=== PATIENT | male | born 1955 | race Caucasian/White ===

== ENCOUNTER 2018-01-13 07:55 | Day surgery (SDC) | payer OTHER ==
[~2018-01-13] VITALS: Ht 182.9 cm; Wt 115.7 kg
[~2018-01-13 07:55] MED LIST: FLOMAX0.4 MG PO; FLONASE2 SPRAY NS; LISINOPRIL10 MG PO; TYLENOL PM EX-1 EACH PO
--- NOTE | 2018-01-13 09:35 | NUR ---
01/13/18 0935 Kemi Hawk 0974-PATIENT ARRIVED TO PACU ON 2L NC O2 SAT 96% PATIENT REACTIVE TO VOICE DROWSY. RR EVEN. ABDOMEN ROUND AND SOFT. LAYING LEFT LATERAL. 0934-PATIENT WEANED TO RA O2 SAT 96% SB SCORE OF 4 WILL SEND SLEEP APNEA FORM.
--- NOTE | 2018-01-14 09:05 | OR ---
[facility] [address], [place] [address] Signed DATE OF OPERATION: 01/13/2018 SURGEON: Ursula Plaza MD COLONOSCOPY REPORT PREOPERATIVE DIAGNOSES: 1. Father with a history of colon cancer in his 70s. 2. Diverticulosis. 3. Hyperplastic rectal polyp. POSTOPERATIVE DIAGNOSIS: Moderate sigmoid diverticulosis. PROCEDURE PERFORMED: Colonoscopy without biopsy. ESTIMATED BLOOD LOSS: None. INDICATIONS: Aruna is a 62-year-old gentleman, who is here for followup colonoscopy. His father had colon cancer in his mid 70s. Aruna had a hyperplastic polyp taken out of the rectum back in 2012. He also has diverticulosis. In the meantime, he said he is doing great and he was able to retire early. He said it has been wonderful. He said he has no lower GI complaints. In the office, I gave Tabitha pamphlet on colonoscopy, we looked at that together along with the risks and benefits. He understands there is risk including, but not limited to gas bloating, crampy abdominal pain, bleeding, perforation, requiring surgery, and missed diagnosis. He also understands the need for IV conscious sedation. He had expressed understanding and wished to proceed. PROCEDURE NOTE: Aruna was taken into our endoscopy suite and placed in the left lateral decubitus position. He was given divided doses of 10 mg of Versed and 175 mcg of fentanyl to cover the case. A thorough rectal exam was performed and his prostate is moderately indurated and enlarged. The right is a little more prominent than the left, but note no dominant nodules. After this, the adult colonoscope was introduced and advanced all around into the cecum under direct visualization of camera. He took some extra prep and some abdominal compression in order to advance the scope. His prep was good. The scope was then slowly withdrawn. He does have a moderate sigmoid diverticulosis. The rectum Electronically Signed By: URSULA PLAZA MD 01/14/18 0905 PATIENT NAME: ARUNA KNOX OPERATIVE REPORT DATE OF : 57 REPORT #: [id number] PHYSICIAN: URSULA PLAZA MD PCP: ANY ENGEL MD REPORT IS CONFIDENTIAL AND NOT TO BE RELEASED WITHOUT AUTHORIZATION [facility] [address], [place] [address] Signed itself was unremarkable. Upon retroflexion of the scope, there was no additional pathology noted above the anal canal. After this, the gas was suctioned out. The colonoscope was removed. Aruna tolerated the procedure quite well. RECOMMENDATIONS: Aruna can follow up in 5 years for repeat colonoscopy. He will follow along with his primary care provider with respect to his prostate and his father's history of prostate cancer. Ursula Plaza MD ALB/MODL /[id number] cc: MD Ursula Campos MD Copies: ANY ENGEL MD, ANDREW L MD ~ Electronically Signed By: URSULA PLAZA MD 01/14/18 0905 PATIENT NAME: ARUNA KNOX OPERATIVE REPORT DATE OF : 57 REPORT #: [id number] PHYSICIAN: URSULA PLAZA MD PCP: ANY ENGEL MD REPORT IS CONFIDENTIAL AND NOT TO BE RELEASED WITHOUT AUTHORIZATION
== END 2018-01-13 10:25 | disposition home or self-care (01) ==
LOC: OPS 07:55 → DS 07:55 → OPS 09:00 → DS 09:00 → OPS 10:25
PROVIDERS: Colon & Rectal Surgery
PROC: 0DJD8ZZ Inspection of Lower Intestinal Tract, Via Natural or Artificial Opening Endoscopic (ICD-10-PCS; principal; 2018-01-13 09:00)
DX: Z12.11 Encounter for screening for malignant neoplasm of colon (principal); K57.30 Diverticulosis of large intestine without perforation or abscess without bleeding; I10 Essential (primary) hypertension; E66.9 Obesity, unspecified; N40.0 Benign prostatic hyperplasia without lower urinary tract symptoms; Z80.0 Family history of malignant neoplasm of digestive organs; Z86.018 Personal history of other benign neoplasm; Z68.34 Body mass index [BMI] 34.0-34.9, adult; Z79.51 Long term (current) use of inhaled steroids; Z79.899 Other long term (current) drug therapy
CPT/HCPCS: 99153; G0500; J2250; J3010; J7120

== ENCOUNTER 2024-03-26 18:32 | Emergency (ER) | payer MEDICARE ==
[~2024-03-26] VITALS: Ht 182.9 cm; Wt 110.4 kg
[2024-03-26] MEDS ORDERED: TADALAFIL5 M1 PO (18:59)
[2024-03-26] MEDS ORDERED: DIPHTH,PERTUSS(ACELL),TET VAC 0.5 ML SYRINGE IM ONE (19:45)
[2024-03-26 20:00] VITALS: BP 135/78
== END 2024-03-26 20:15 | disposition home or self-care (01) ==
LOC: ED 18:32
DX: S61.411A Laceration without foreign body of right hand, initial encounter (principal); W26.0XXA Contact with knife, initial encounter; I10 Essential (primary) hypertension; Z23 Encounter for immunization; Z79.899 Other long term (current) drug therapy
CPT/HCPCS: 90471; 90715; 99282-25